=== PATIENT | male | born 1980 | race Caucasian/White ===

== ENCOUNTER 2023-03-24 10:26 | Emergency (ER) | payer OTHER ==
[2023-03-24] MEDS ORDERED: BACIGUENT PACKET TOP ONE (10:27)
--- NOTE | 2023-03-24 10:47 | ERPHSYRPT ---
- History of Present Illness Time Seen by Provider: 03/24/23 10:42 Source: patient Exam Limitations: no limitations Physician History: This is a right-handed 43-year-old white male patient who was using a hydraulic press when it smashed his left fifth digit. Patient's tetanus status is not up-to-date but he does not want the tetanus injection. Occurred: just prior to arrival Quality: throbbing Severity of Pain-Max: mild (To moderate) Severity of Pain-Current: mild (To moderate) Extremities Pain Location: 5th finger: right Modifying Factors: Improves With: movement Associated Symptoms: none Allergies/Adverse Reactions: No Known Drug Allergies Allergy (Verified 03/24/23 10:54) Hx Influenza Vaccination/Date Given: No Hx Pneumococcal Vaccination/Date Given: No Travel Risk - International Travel Have you traveled outside of the country in past 3 weeks: No - Coronavirus Screening Are you exhibiting any of the following symptoms?: No Close contact with a COVID-19 positive Pt in past 14-21 Days: No - Review of Systems Constitutional: No Symptoms Eyes: No Symptoms Ears, Nose, & Throat: No Symptoms Respiratory: No Symptoms Cardiac: No Symptoms Abdominal/Gastrointestinal: No Symptoms Genitourinary Symptoms: No Symptoms Musculoskeletal: Injury (Left fifth digit) Skin: No Symptoms Neurological: No Symptoms Psychological: No Symptoms Endocrine: No Symptoms Hematologic/Lymphatic: No Symptoms Immunological/Allergic: No Symptoms All Other Systems: Reviewed and Negative - Past Medical History Pertinent Past Medical History: No Neurological History: No Pertinent History ENT History: No Pertinent History Cardiac History: No Pertinent History Respiratory History: No Pertinent History Endocrine Medical History: No Pertinent History Musculoskeletal History: No Pertinent History GI Medical History: No Pertinent History History: No Pertinent History Psycho-Social History: No Pertinent History Male Reproductive Disorders: No Pertinent History - Past Surgical History Past Surgical History: Yes (appendix 2009) Neuro Surgical History: No Pertinent History Cardiac: No Pertinent History Respiratory: No Pertinent History Gastrointestinal: Appendectomy Genitourinary: No Pertinent History Musculoskeletal: No Pertinent History Male Surgical History: No Pertinent History - Social History Smoking Status: Former smoker Exposure to second hand smoke: No Drug Use: none - Nursing Vital Signs Nursing Vital Signs: Initial Vital Signs Temperature 97.7 F 03/24/23 10:43 Pulse Rate 91 H 03/24/23 10:43 Blood Pressure 130/86 03/24/23 10:43 O2 Sat by Pulse Oximetry 98 03/24/23 10:43 Pain Scale Pain Intensity 7 - Physical Exam General Appearance: no apparent distress, alert, anxiety Eyes, Ears, Nose, Throat Exam: normal ENT inspection, moist mucous membranes Neck Exam: normal inspection, non-tender, supple, full range of motion Cardiovascular/Respiratory Exam: chest non-tender, no respiratory distress Abdominal Exam: non-tender Back Exam: normal inspection, normal range of motion, No CVA tenderness, No vertebral tenderness Shoulder Exam: normal inspection, non-tender, no evidence of injury, normal ROM Elbow/Forearm Exam: normal inspection, non-tender, no evidence of injury, normal ROM Wrist Exam: normal inspection, non-tender, no evidence of injury, normal ROM Hand Exam: deformity (Left fifth digit), limited ROM (Left fifth digit), soft tissue tenderness (Left fifth digit), swelling (Left fifth digit) Neuro/Tendon Exam: normal sensation, normal motor functions, normal tendon functions, responds to pain, no evidence tendon injury Mental Status Exam: alert, oriented x 3, cooperative Skin Exam: laceration (Vertically oriented very thin almost abrasion like laceration sites that are not actively bleeding there is no evidence of foreign body. No need for surgical repair.) - Course Nursing assessment & vital signs reviewed: Yes Ordered Tests: Active Orders 24 hr Category Date Time Status FINGER(S) Stat Exams 03/24/23 10:55 Taken Medication Summary Discontinued Medications Generic Name Dose Route Start Last Admin Trade Name [place] PRN Reason Stop Dose Admin Ibuprofen 600 mg 03/24/23 11:23 03/24/23 11:35 Ibuprofen 600 Mg Tablet PO 03/24/23 11:24 600 mg STAT ONE Administration Ibuprofen Confirm 03/24/23 11:34 Ibuprofen 600 Mg Tablet Administered 03/24/23 11:35 Dose 600 mg .ROUTE .STK-MED ONE Oxycodone/Acetaminophen 1 tab 03/24/23 11:23 03/24/23 11:35 Oxycodone Hcl/Apap 5 Mg/325 Mg Tablet PO 03/24/23 11:24 1 tab STAT STA Administration Oxycodone/Acetaminophen Confirm 03/24/23 11:34 Oxycodone Hcl/Apap 5 Mg/325 Mg Tablet Administered 03/24/23 11:35 Dose 1 tab .ROUTE .STK-MED ONE - Progress Progress Note: 03/24/23 11:21 This patient's medical issue is 1 of low complexity. Level complex in the work- up performed is based on review of the patient's past medical history, review the patient's medication list, review the patient drug allergy list, history of present illness and physical findings on examination. The work-up in this patient will include a x-ray of the left hand specifically looking at the fifth digit of the left hand. We will also provide the patient with Percocet 5/325 orally and ibuprofen 600 mg orally. If need be, we will do nerve block to the patient's left fifth digit to perform a reduction if there is a dislocation present. 03/24/23 11:50 The x-ray of the patient left fifth finger demonstrates mildly displaced tuft fracture with soft tissue swelling. There is no other bony, articular or soft tissue abnormalities. This study was interpreted by the radiologist and I reviewed the impression Counseled pt/family regarding: diagnosis, need for follow-up, rad results Medical Desision Making - Independent Historian Additional History obtained from: Spouse - Diagnostic Testing Diagnostic test were ordered, analyzed, and reviewed by me: Yes Radiological Interpretation: Reviewed by me, Teleradiologist Report - Risk of complications The pt has a mod risk of morbidity or mortality based on: Need for prescription drug management - Departure Clinical Impression: Closed fracture of tuft of distal phalanx of left little finger Condition: Stable Critical Care Time: No Referrals: MEENAKSHI CORDOVA, TABLE SETTER [Primary Care Provider] - Follow up/PCP as directed Additional Instructions: Keep the current dressing in place for 24 hours. The dressing in 24 hours and wash the site daily thereafter with soap and water. Blot dry or use a electronics technology department chair to dry the site and then apply thin layer of antibiotic ointment to the site and cover with a bandage. Take your antibiotics and other medication as prescribed. Keep your hand surgeon appointment that was obtained for you. Prescriptions: Oxycodone HCl/Acetaminophen [Percocet 5-325 mg Tablet] 1 each PO Q8H PRN PRN #6 tablet MDD 3 PRN Reason: Moderate To Severe Pain Cephalexin Mh 500 mg [Keflex 500 mg] 500 mg PO TID #21 cap
[2023-03-24 10:54] VITALS: BP 130/86; PULSE 91; TEMP 97.7; O2SAT 98
[2023-03-24] MEDS ORDERED: MOTRIN 600 MG PO ONE (11:23)
[2023-03-24] MEDS ORDERED: PERCOCET TABLET 5/325MG PO STA (11:23)
[2023-03-24] MEDS ORDERED: MOTRIN 600 MG ONE (11:34)
[2023-03-24] MEDS ORDERED: PERCOCET TABLET 5/325MG ONE (11:34)
--- NOTE | 2023-03-24 13:54 | XRAY ---
Indication: Pain, laceration, and swelling following injury. Comparison: None 3 portable views left 5th finger demonstrates mildly displaced tuft fracture with soft tissue swelling. No other bony, articular, or soft tissue abnormalities.
== END 2023-03-24 12:16 | disposition home or self-care (01) ==
LOC: ED 10:26
DX: S62.637A Displaced fracture of distal phalanx of left little finger, initial encounter for closed fracture (principal); W31.1XXA Contact with metalworking machines, initial encounter; Z79.891 Long term (current) use of opiate analgesic
CPT/HCPCS: 73140; 99283; A9270-GY